=== PATIENT | female | born 1940 | race Caucasian/White ===

== ENCOUNTER 2019-06-12 08:19 | Observation (INO) ==
--- NOTE | 2019-06-09 09:49 | Anesthesiology Consultation ---
Date of Service June 09, 2019 Assessment & Plan (1) Encounter for pre-operative examination: Chart Review Chart Review: Acceptable Risk for Surgery and Patient NOT seen in Pre Admission Testing History Surgery Operation Date: 06/12/19 13:30 Proposed Procedures p Left Video Assisted Thoracoscopy with Lung Biopsy - Kevan Stark MD, FACS Height/Weight Height: 5 ft Weight: 92.986 kg Allergies Allergy/AdvReac Type Severity Reaction Status Date / Time [id number] Reductase AdvReac Muscle Pain Verified 06/09/19 09:12 Inhibitor Medications Home Medications Medication Instructions Recorded Confirmed Last Taken aspirin 81 mg tablet,delayed 81 mg PO QPM 06/03/19 06/09/19 Unknown release hydrochlorothiazide 50 mg tablet 50 mg PO QAM tab 06/03/19 06/09/19 Unknown labetalol 200 mg tablet 200 mg PO BID 06/03/19 06/09/19 Unknown lisinopril 40 mg tablet 40 mg PO QPM 06/03/19 06/09/19 Unknown magnesium oxide 400 mg (241.3 mg 400 mg PO QAM 06/03/19 06/09/19 Unknown magnesium) tablet multivitamin 1 tab PO QDL 06/03/19 06/09/19 Unknown omeprazole 20 mg capsule,delayed 20 mg PO QDL 06/03/19 06/09/19 Unknown release amlodipine 2.5 mg tablet 2.5 mg PO QAM 06/08/19 06/09/19 Unknown calcium carbonate 600 mg calcium 1,200 mg PO QPM tab 06/08/19 06/09/19 Unknown (1,500 mg) tablet celecoxib 200 mg capsule 200 mg PO DAILY PRN 06/08/19 06/09/19 Unknown cholecalciferol (vitamin D3) 400 800 units PO QDL cap 06/08/19 06/09/19 Unknown unit capsule simvastatin 5 mg tablet 5 mg PO QPM 06/08/19 06/09/19 Unknown Past Medical History Medical History (Updated 06/09/19 @ 10:01 by Nellie Blood PA-C) Anemia Gastric ulcer GERD (gastroesophageal reflux disease) Gout Hiatal hernia History of pneumothorax Left side - post op cholecystectomy 1990s Hyperlipidemia Hypertension Osteoarthritis Pulmonary fibrosis determined by high resolution computed tomography Sleep apnea CPAP Past Surgical History Surgical History H/O shoulder surgery Left History of chest tube placement 1990s History of colonoscopy History of esophagogastroduodenoscopy (EGD) History of total abdominal hysterectomy and bilateral salpingo-oophorectomy Nausea and vomiting after administration of anesthetic agent S/P cholecystectomy Status post hip replacement 2016 Right Social History Smoking Status: Never smoker Do You Dip or Chew Tobacco: No Hx Alcohol Use: No Hx Substance Use: No substance use type: does not use Testing Laboratory Results Laboratory Tests 06/08/19 06/08/19 11:32 11:32 WBC 4.98 Hgb 12.9 Hct 39.7 Plt Count 223 Sodium 140 Potassium 4.0 Chloride 106 Carbon Dioxide 30 BUN 22 H Creatinine 0.73 Glucose 102 H Electrocardiogram Date: 06/08/19 Findings: + NSR @ (66) Other Testing CT Thorax without Contrast 05/22/19: Stable interstitial pulm fibrosis compared to 11/2018. Hemangioma to liver based on MRI. Stable SARINA pulm nodule compared to 11/2018. Large hiatal hernia. Possibility of chronic aspiration should be considered
[~2019-06-12 08:19] MED LIST: LR 15ML/HR IV SCH
[2019-06-12] MEDS ORDERED: ePHEDrine sulfate 50 MG/ML AMP IV PRN (08:54)
[2019-06-12] MEDS ORDERED: ONDANSETRON INJ 2 MG/ML 2 ML VIAL IV PRN ×2 (08:54→13:15)
[2019-06-12] MEDS ORDERED: fentaNYL citrate 100 MCG/2 ML VIAL IV PRN (08:54)
[2019-06-12] MEDS ORDERED: ATROPINE SULFATE 0.1 MG/ML 10ML SYR IV PRN (08:54)
[2019-06-12] MEDS ORDERED: SODIUM CHLORIDE 0.9% PF 50 ML VIAL ONE (09:13)
[2019-06-12] MEDS ORDERED: BUPIVACAINE LIPOSOME 1.3% 266 MG/20 ML VIAL ONE (09:13)
[2019-06-12] MEDS ORDERED: BUPIVACAINE 0.5 % 5 MG/1 ML MPF 30ML VIAL ONE (09:13)
[2019-06-12] MEDS ORDERED: PROPOFOL IV EMULSION 10 MG/ML 20 ML VIAL IV ONE (09:14)
[2019-06-12] MEDS ORDERED: LIDOCAINE HCL 2% 2 ML VIAL/AMP(20MG/ML) INFIL ONE (09:14)
[2019-06-12] MEDS ORDERED: NEOSTIGMINE METHYLSULFATE 5 MG/5 ML SYR ONE (09:14)
[2019-06-12] MEDS ORDERED: DEXAMETHASONE SOD INJ 4 MG/ML VIAL ONE (09:14)
[2019-06-12] MEDS ORDERED: fentaNYL citrate 100 MCG/2 ML VIAL ONE (09:14)
[2019-06-12] MEDS ORDERED: GLYCOPYRROLATE 0.2 MG/ML VIAL ONE (09:14)
[2019-06-12] MEDS ORDERED: MIDAZOLAM HCL 1 MG/ML 2ML VIAL ONE ×2 (09:14→09:18)
[2019-06-12] MEDS ORDERED: ONDANSETRON INJ 2 MG/ML 2 ML VIAL ONE (09:14)
--- NOTE | 2019-06-12 09:39 | History & Physical Bridge Note ---
Date of Service June 12, 2019 History & Physical Bridge Note I have examined the patient, reviewed the History & Physical and in the interval since the performance of the History & Physical I have noted the following changes of clinical significance: no changes noted. We are performing a right VATS biopsy.
[2019-06-12] MEDS ORDERED: ePHEDrine sulfate 50 MG/ML AMP ONE (11:28)
--- NOTE | 2019-06-12 11:46 | Operative Report ---
PG Post Operative Report Pre & Post Diagnosis Operation Date: 06/12/19 09:55 Pre-Op Diagnosis: Right Interstitial Lung Disease Post-Op Diagnosis: Right Interstitial Lung Disease; extensive adhesions I identified the patient and participated in the time-out.: Yes Procedure Operation Date: 06/12/19 09:55 Actual Procedures p Right Video Assisted Thoracoscopy with Lung Biopsy, Extensive Lysis of Adhesions(Right) - Kevan Stark MD, FACS Surgeon Kevan Stark MD, FACS Parole Officer Terrence JURADO Estimated Blood Loss 20 Findings Consistent with Post-Op Diagnosis Specimens 3 separate wedge resections right upper, middle, and lower lobes. Drains 24 Green[place]ic chest tube Anesthesia Type General Complications none Disposition Accompanied Patient To Recovery: Yes Disposition: Recovery Room Description of Procedure This 78-year-old female was referred by the [facility] for evaluation for a lung biopsy to ascertain if she had interstitial lung disease. She certainly has radiographic signs and symptoms consistent with interstitial lung disease. On 06/12/2019, the patient underwent an uncomplicated right thoracoscopy. She had marked adhesions and we painstakingly took these adhesions down sharply. We did not enter the lung. We then wedged out a segment of the lower lobe, the middle lobe, and the upper lobe. Portions were sent for culture. Frozen section showed probable pulmonary fibrosis but will require permanent sections. Procedure: The patient was brought to the operating room and laid in the supine position. General anesthesia was induced and endotracheal intubation was performed with a single-lumen tube. Patient was turned into the left lateral decubitus position and her right chest was prepped and draped in the usual sterile fashion. After an appropriate timeout had been called and prophylactic antibiotics given, a 5 mm port was placed posterior to the scapula just above the tip. We then placed another 5 mm scope just anterior latissimus dorsi at about the same level. A 12 mm port was placed just anterior to the midaxillary line further down near the costal margin. The patient had marked adhesions and we took these down painstakingly with a sharp hook and cautery. We took down each of the 3 lobes. We did not injure the lung. A total of 20 mg solution containing 266 mg of Exparel were mixed with 30 cc of 0.5% mepivacaine and 250 cc of normal saline. This was used to inject each of the 3 ports prior to making our incision. We then performed an intercostal block from the second to the 12th rib by injecting into the intercostal space intrathoracic Luis under thoracoscopic guidance. We then wedged out the lower lobe, middle lobe, and upper lobe portions. We removed each of these to the 12 mm port. Patient had no significant bleeding. A 24 Green[place]ic chest tube was placed to the 12 mm port and directed towards the apex. He was sutured in place with heavy silk suture. 4 Monocryl was used to close each of the skin incisions in a subcuticular fashion. Patient was extubated in the room. She was transported to the postanesthesia care unit in stable condition. He had no air leak conclusion of the case. I attest to the content of the Intraoperative Record and any orders documented therein. Any exceptions are noted below.
[2019-06-12] MEDS ORDERED: METOCLOPRAMIDE HCL INJ 5 MG/ML 2 ML VIAL IV ONE (11:55)
--- NOTE | 2019-06-12 12:06 | XRay Report ---
XR chest 1V portable HISTORY: 78 years-old Female rightlung biopsy status post right lung biopsy COMPARISON: Chest CT 05/22/2019 TECHNIQUE: Portable AP view of the chest FINDINGS: Cardiac silhouette is enlarged, unchanged. Chronic bilateral reticular opacities compatible with inte rstitial lung disease. Surgical suture material projects over the lateral right midlung. There is a s mall pneumothorax of the lateral right midlung, pleural separation measuring up to approximately 10 m m. A right-sided chest tube is present, distal tip terminating within the right suprahilar distributi on. Mild right hemidiaphragmatic elevation. Pulmonary vascular congestion. Subcutaneous emphysema of the right chest wall and supraclavicular distributions. Degenerative changes of the shoulders and spi ne. Cholecystectomy. Moderate hiatal hernia. IMPRESSION: 1. Postoperative changes of the right lung with small pneumothorax. 2. Distal tip of chest tube terminates within the right suprahilar distribution. 3. Chronic interstitial lung disease. ACT 112: Negative or not required by law. The above report was generated using voice recognition software. It may contain grammatical, syntax o r spelling errors. Electronically signed by: Hill Ro M.D. 06/12/2019 12:05 PM
--- NOTE | 2019-06-12 12:33 | Anesthesiology Progress Note ---
Date of Service June 12, 2019 Anesthesia Post Procedure Vital Signs Vital Signs: Temp Pulse Pulse Resp BP Pulse Ox 06/12/19 12:25 58 L 16 128/64 94 06/12/19 12:15 56 L 16 144/74 H 98 06/12/19 12:05 47 L 16 153/69 H 98 06/12/19 11:59 97.2 F L 59 L 16 111/61 98 06/12/19 08:51 97.9 F 65 18 187/77 H 93 Transfer of Care Handoff Completed per policy Notes Mental Status: alert / awake / arousable and participated in evaluation Patient Amnestic to Procedure: Yes Nausea / Vomiting: adequately controlled Pain: adequately controlled Airway Patency, RR, SpO2: stable & adequate BP & HR: stable & adequate Hydration State: stable & adequate Anesthetic Complications: no major complications apparent and Pt Satisfied with anesthetic care
[2019-06-12] MEDS ORDERED: OXYCODONE HCL IR 5 MG TAB (IMMEDIATE RELEASE) PO PRN (13:15)
[2019-06-12] MEDS ORDERED: MoRPHine SULFATE 2 MG/ML CARP IV PRN (13:15)
[2019-06-12] MEDS: ACETAMINOPHEN 1,000 MG/100 ML VIAL IV SCH ×2 (14:15→22:07)
[2019-06-12] MEDS: D5W AND 1/2NSS 1,000 ML IV SCH ×2 (14:37→23:51)
[2019-06-12] MEDS: METOCLOPRAMIDE HCL INJ 5 MG/ML 2 ML VIAL IV SCH (20:15)
[2019-06-12] MEDS: DOCUSATE SODIUM 100 MG CAP PO SCH (20:16)
[2019-06-12] MEDS ORDERED: CALCIUM CARBONATE 1250MG TAB PO SCH (21:00)
[2019-06-12] MEDS ORDERED: SIMVASTATIN 5 MG TAB PO SCH (21:00)
[2019-06-12] MEDS ORDERED: ASPIRIN 81 MG ECTAB PO SCH (21:00)
[2019-06-12] MEDS ORDERED: lisinopriL 40 MG TAB PO SCH (21:00)
[2019-06-12] MEDS: LABETALOL HCL 200 MG TAB PO SCH (22:06)
[2019-06-13] MEDS ORDERED: COUGH DROP (SUGAR FREE) LOZ 24 LOZ/1 BOX BUCCAL PRN (03:10)
[2019-06-13] MEDS ORDERED: COUGH DROP (SUGAR FREE) LOZ 24 LOZ/1 BOX BUCCAL ONE (03:14)
[2019-06-13] MEDS: METOCLOPRAMIDE HCL INJ 5 MG/ML 2 ML VIAL IV SCH (04:05)
[2019-06-13] MEDS: ACETAMINOPHEN 1,000 MG/100 ML VIAL IV SCH (05:29)
[2019-06-13] MEDS: LABETALOL HCL 200 MG TAB PO SCH (08:45)
[2019-06-13] MEDS: DOCUSATE SODIUM 100 MG CAP PO SCH (08:46)
[2019-06-13] MEDS ORDERED: MAGNESIUM OXIDE 400 MG TAB PO SCH (09:00)
[2019-06-13] MEDS ORDERED: ENOXAPARIN INJ 40 MG/0.4 ML SYR SQ SCH (09:00)
[2019-06-13] MEDS ORDERED: AMLODIPINE BESYLATE 5 MG TAB PO SCH (09:00)
--- NOTE | 2019-06-13 09:19 | XRay Report ---
SINGLE VIEW CHEST CLINICAL HISTORY: Status post right lung biopsy. FINDINGS: 2 AP, portable, upright chest radiographs are compared to study dated 06/12/2019 and correla royce with chest CT dated 05/22/2019. The examination is degraded by portable technique and patient rotat ion. The heart is enlarged. Prominence of the pulmonary vasculature is unchanged. There is a large hi atal hernia. Suture material projects over the right midlung. Changes of chronic interstitial lung di sease are similar to previous. No superimposed airspace consolidation or large pleural effusion is id entified. A trace right basilar pneumothorax is suspected. The skeletal structures are osteopenic. Th e bony thorax is grossly intact. Subcutaneous emphysema is seen along the right chest wall. IMPRESSION: 1. A right-sided chest tube is unchanged in position. There is likely a trace right basilar pneumotho rax. 2. Cardiomegaly with prominence of the central pulmonary vasculature. Correlate clinically for eviden ce of mild congestion. 3. Changes of chronic interstitial lung disease are similar to previous. 4. There is no evidence of superimposed airspace consolidation or pleural effusion. 5. Hiatal hernia. ACT 112: Negative or not required by law. Electronically signed by: Ambrose Valdes M.D. 06/13/2019 9:17 AM
[2019-06-13] MEDS: D5W AND 1/2NSS 1,000 ML IV SCH (09:56)
--- NOTE | 2019-06-13 09:59 | XRay Report ---
SINGLE VIEW CHEST CLINICAL HISTORY: Chest tube removal. FINDINGS: An AP, portable, upright chest radiograph is compared to study performed earlier the same d ay 06/13/2019 and correlated with chest CT dated 05/22/2019. The examination is degraded by portable graciela hnique and patient rotation. The heart is enlarged. Prominence of the pulmonary vasculature is unchan ged. There is a large hiatal hernia. A right-sided chest tube has been removed. No definite pneumotho rax is seen. Suture material projects over the right midlung. There are low lung volumes. Changes of chronic interstitial lung disease are similar to previous. No superimposed airspace consolidation or large pleural effusion is identified. The skeletal structures are osteopenic. The bony thorax is nichole sly intact. Subcutaneous emphysema is seen along the right chest wall. Cholecystectomy clips are note d in the right upper quadrant. IMPRESSION: 1. A right-sided chest tube has been removed. No definite pneumothorax is seen. 2. Cardiomegaly with prominence of the central pulmonary vasculature. Correlate clinically for eviden ce of mild congestion. 3. Changes of chronic interstitial lung disease are similar to previous. 4. There is no evidence of superimposed airspace consolidation or pleural effusion. 5. Hiatal hernia. ACT 112: Negative or not required by law. Electronically signed by: Ambrose Valdes M.D. 06/13/2019 9:58 AM
[2019-06-13] MEDS ORDERED: PANTOprazole 40 MG TAB PO SCH (11:30)
[2019-06-13] MEDS ORDERED: CHOLECALCIFEROL (VITAMIN D) 400 UNITS TABLET PO SCH (11:30)
[2019-06-13] MEDS ORDERED: MULTIVITAMIN TAB PO SCH (11:30)
--- NOTE | 2019-06-13 11:33 | Discharge Summary ---
DISCHARGE DIAGNOSIS: Probable interstitial lung disease. HOSPITAL COURSE: This is a delightful 78-year-old female who has radiographic signs and symptoms which are consistent with interstitial lung disease. I was asked to see her for a lung biopsy and set her up for such. On 06/12/2019, the patient was brought to the operating room and was found to have marked adhesions. I performed an extensive lysis of adhesions. We then performed biopsies of right middle, right upper and right lower lobe. Frozen section showed definitely abnormal lungs, but it is difficult to ascertain exactly what the etiology is until the final slides are back. The patient did very well. She had a quiet night. I removed her chest tube on postop day #1, her x-ray looked good after we did this. I gave her discharge instructions and give her tramadol for pain. I will see her back next week with an x-ray.
== END 2019-06-13 12:32 | disposition home or self-care (01) ==
LOC: ASU 08:19 → 3W 11:50 → INTOOBSV 11:50